=== PATIENT | female | born 1965 | race Caucasian/White ===

== ENCOUNTER 2022-03-05 16:49 | Observation (INO) ==
[2022-03-05] MEDS ORDERED: Perflutren Lipid Microsphere 1.3 ML in 0.9 % Sodium Chloride 8.7 ML IVP PRN (19:18)
[2022-03-05] MEDS ORDERED: Diclofenac Sodium (DR) 50 MG TABLET.DR PO PRN (21:51)
[2022-03-05] MEDS ORDERED: tiZANidine 4 MG TABLET PO PRN (21:51)
[2022-03-05] MEDS ORDERED: Acetaminophen 325 MG TABLET PO PRN (21:55)
[2022-03-05] MEDS ORDERED: Ondansetron 4 MG/2 ML VIAL IVP PRN (21:55)
[2022-03-05] MEDS ORDERED: Naloxone 0.4 MG/ML INJ IVP PRN (21:55)
[2022-03-05 22:02] LABS: Basophils % 0.1 %; Eosinophils # 0.1 K/mcL (0.0-0.6); Eosinophils % 1.1 %; Hematocrit 40.4 % (35.3-44.9); Hemoglobin 13.2 g/dL (11.5-15.4); Immature Granulocytes % 0.1 % (0-4); Lymphocytes # 2.9 K/mcL (0.6-4.6); Lymphocytes % 40.2 %; Mean Corpuscular HGB Conc 32.7 g/dL (31.6-35.5); Mean Corpuscular Hemoglobin 31.2 pg (28.0-33.3); Mean Corpuscular Volume 95.5 fL (83.0-100.0); Mean Platelet Volume 10.4 fL (9.4-12.4); Monocytes # 0.6 K/mcL (0.0-1.3); Neutrophils # 3.7 K/mcL (1.6-8.9); Platelet Count 198 K/mcL (140-400); Red Blood Count 4.23 M/mcL (3.82-4.97); Red Cell Distribution Width 12.7 % (11.5-14.5); Segmented Neutrophils % 50.5 %; White Blood Count 7.3 K/mcL (4.3-11.1)
[2022-03-05 22:04] LABS: Estimated Average Glucose 126 mg/dl
[2022-03-05] MEDS ORDERED: Furosemide 20 MG/2 ML VIAL IVP ONE (22:14)
[2022-03-05 22:22] LABS: Alanine Aminotransferase 11 Units/L (7-52); Albumin 3.8 g/dL (3.5-5.7); Albumin/Globulin Ratio 1.4 (1.1-2.2); Alkaline Phosphatase 94 Units/L (34-104); Aspartate Amino Transferase 12 Units/L (13-39); BUN/Creatinine Ratio 24 (6-26); Bilirubin,Total 0.4 mg/dL (0.3-1.0); Blood Urea Nitrogen 19 mg/dL (6-20); Calcium 8.9 mg/dL (8.6-10.3); Carbon Dioxide 29 mEq/L (23-29); Chloride 106 mEq/L (98-107); Chol/HDL Ratio 3.3 (0-4.9); Cholesterol 142 mg/dL (< 200); Globulin 2.8 g/dL (2.4-3.5); Glucose 96 mg/dL (70-105); HDL Cholesterol 43 mg/dL (40-59); LDL Cholesterol,Calculated 54 mg/dL (< 100); Osmolality,Calculated 292 (280-300); Sodium 140 mEq/L (136-145); Total Protein 6.6 g/dL (6.4-8.9); Triglycerides 227 mg/dL (< 150); eGFR For African Americans > 60 (> 60); eGFR For Non-African Americans > 60 (> 60)
[2022-03-05 22:23] LABS: Magnesium 1.8 mg/dL (1.6-2.6)
[2022-03-05 22:36] LABS: Thyroid Stimulating Hormone 1.786 mcIU/mL (0.340-5.600)
[2022-03-05] MEDS ORDERED: Isovue-370 500 ML BOTTLE IVP ONE (22:43)
[2022-03-05 22:59] LABS: Bilirubin,Urine Small (Negative); Blood,Urine Negative (Negative); Clarity,Urine Clear (Clear); Color,Urine Light-Yellow (Yellow); Glucose,Urine (UA) Normal (Normal); Ketones,Urine Negative (Negative); Leukocyte Esterase,Urine Negative (Negative); Nitrite,Urine Negative (Negative); PH,Urine 6.5 pH Units (5.0-8.0); Protein,Urine Trace mg/dL (Neg-Trace); Specific Gravity,Urine > 1.030 (1.010-1.025); Urobilinogen,Urine Normal (Normal)
[2022-03-05 23:05] LABS: Amphetamine Screen,Urine Negative ng/mL (Cutoff=1000); Barbiturate Screen,Urine Negative ng/mL (Cutoff=200); Benzodiazepines Screen,Urine Negative ng/mL (Cutoff=200); Cannabinoid Screen,Urine Negative ng/mL (Cutoff = 50); Cocaine Screen,Urine Negative ng/mL (Cutoff= 300); Opiate Screen,Urine Negative ng/mL (Cutoff=300); Phencyclidine Screen,Urine Negative ng/mL (Cutoff=25)
[2022-03-05] MEDS: Aspirin Enteric Coated 81 MG Tablet PO SCH (23:09)
[2022-03-05] MEDS: Nicotine 21 MG PATCH.TD24 TD SCH (23:43)
[2022-03-06] MEDS: *HR* Heparin 5,000 UNIT/ML VIAL SQ SCH ×3 (05:22→23:01)
[2022-03-06 06:17] LABS: Hematocrit 43.1 % (35.3-44.9); Hemoglobin 13.8 g/dL (11.5-15.4); Mean Corpuscular Hemoglobin 31.2 pg (28.0-33.3); Mean Corpuscular Volume 97.5 fL (83.0-100.0); Mean Platelet Volume 10.4 fL (9.4-12.4); Platelet Count 190 K/mcL (140-400); Red Blood Count 4.42 M/mcL (3.82-4.97); Red Cell Distribution Width 12.6 % (11.5-14.5); White Blood Count 6.9 K/mcL (4.3-11.1)
[2022-03-06 06:43] LABS: BUN/Creatinine Ratio 26 (6-26); Blood Urea Nitrogen 18 mg/dL (6-20); Calcium 8.7 mg/dL (8.6-10.3); Carbon Dioxide 26 mEq/L (23-29); Chloride 107 mEq/L (98-107); Glucose 86 mg/dL (70-105); Osmolality,Calculated 295 (280-300); Potassium 3.6 mEq/L (3.5-5.1); Sodium 142 mEq/L (136-145); Troponin I < 0.03 ng/mL (< 0.04); eGFR For African Americans > 60 (> 60); eGFR For Non-African Americans > 60 (> 60)
[2022-03-06] MEDS: Budesonide/Formoterol 160/4.5 1 PUFF INH IH SCH ×2 (07:39→20:10)
[2022-03-06] MEDS: Aspirin Enteric Coated 81 MG Tablet PO SCH (08:29)
[2022-03-06] MEDS: BuPROPion XL (24 HR) 150 MG TABLET PO SCH (08:29)
[2022-03-06] MEDS: Furosemide 20 MG/2 ML VIAL IVP SCH ×2 (08:30→23:01)
[2022-03-06] MEDS ORDERED: Furosemide 20 MG TABLET PO SCH (09:00)
[2022-03-06] MEDS: Azithromycin 250 MG TABLET PO SCH (09:39)
[2022-03-06] MEDS: predniSONE 20 MG TABLET PO SCH (09:41)
[2022-03-06] MEDS: Nicotine 21 MG PATCH.TD24 TD SCH (23:02)
[2022-03-07] MEDS: *HR* Heparin 5,000 UNIT/ML VIAL SQ SCH (05:37)
[2022-03-07 06:54] LABS: Hematocrit 41.5 % (35.3-44.9); Hemoglobin 13.5 g/dL (11.5-15.4); Mean Corpuscular HGB Conc 32.5 g/dL (31.6-35.5); Mean Corpuscular Hemoglobin 31.5 pg (28.0-33.3); Platelet Count 228 K/mcL (140-400); Red Blood Count 4.28 M/mcL (3.82-4.97); Red Cell Distribution Width 12.8 % (11.5-14.5); White Blood Count 7.6 K/mcL (4.3-11.1)
[2022-03-07 07:05] LABS: BUN/Creatinine Ratio 30 (6-26); Blood Urea Nitrogen 20 mg/dL (6-20); Calcium 8.3 mg/dL (8.6-10.3); Carbon Dioxide 28 mEq/L (23-29); Chloride 108 mEq/L (98-107); Glucose 95 mg/dL (70-105); Osmolality,Calculated 294 (280-300); Potassium 3.7 mEq/L (3.5-5.1); Sodium 141 mEq/L (136-145); eGFR For African Americans > 60 (> 60); eGFR For Non-African Americans > 60 (> 60)
[2022-03-07 07:18] VITALS: BP 124/71; PULSE 80; TEMP 98
[2022-03-07] MEDS: Budesonide/Formoterol 160/4.5 1 PUFF INH IH SCH (07:33)
[2022-03-07] MEDS: BuPROPion XL (24 HR) 150 MG TABLET PO SCH (07:49)
[2022-03-07] MEDS: Furosemide 20 MG/2 ML VIAL IVP SCH (07:50)
[2022-03-07] MEDS: predniSONE 20 MG TABLET PO SCH (07:50)
[2022-03-07] MEDS: Azithromycin 250 MG TABLET PO SCH (07:50)
[2022-03-07] MEDS: Aspirin Enteric Coated 81 MG Tablet PO SCH (07:50)
[2022-03-07 18:08] VITALS: O2SAT 96
== END 2022-03-07 12:02 | disposition home or self-care (01) ==
LOC: 3BNU → SUATTDRO 18:27
PROVIDERS: ADMIT Internal Medicine; ATTEND Internal Medicine